=== PATIENT | female | born 1955 | race Caucasian/White ===

== ENCOUNTER 2018-06-20 16:10 | Emergency (ER) | payer MEDICARE, OTHER ==
[~2018-06-20] VITALS: Ht 175.3 cm; Wt 90.7 kg
[~2018-06-20 16:10] MED LIST: ACETAMINOPHEN-1 EAC1 PO; AUGMENTIN 875-1 EACH PO; BETIMOL5 M1 OPTH; COZAAR25 MG PO; DICLOFENAC SOD2.5 ML OPTH; FOLIC ACID1 MG PO; HYDROCHLOROTHIA50 MG PO; LATANOPROST2.5 ML OPTH; OMEGA-31000 MG PO; POTASSIUM CHLO10 MEQ PO; PREDNISONE10 MG PO; PROBIOTIC1 EAC1 PO; SAME200 MG PO; TYLENOL WITH C1 EACH PO; VITAMIN D400 UNI1 PO; ZOFRAN ODT4 MG SL
[2018-06-20] MEDS ORDERED: KETOROLAC TROME10 MG PO (17:03)
== END 2018-06-20 17:16 | disposition home or self-care (01) ==
LOC: ED 16:10
DX: S93.402A Sprain of unspecified ligament of left ankle, initial encounter (principal); I10 Essential (primary) hypertension; Z90.710 Acquired absence of both cervix and uterus; Z88.1 Allergy status to other antibiotic agents; Z88.0 Allergy status to penicillin; Z79.899 Other long term (current) drug therapy; W19.XXXA Unspecified fall, initial encounter
CPT/HCPCS: 73610; 99283

== ENCOUNTER 2021-03-10 12:26 | Emergency (ER) | payer MEDICARE, OTHER ==
[~2021-03-10] VITALS: Ht 175.3 cm; Wt 90.7 kg
[~2021-03-10 12:26] MED LIST changes: +KETOROLAC TROME10 MG PO
[2021-03-10] MEDS ORDERED: FLUTICASONE PRO16 GM NAS (12:35)
[2021-03-10] MEDS ORDERED: ATIVAN1 MG PO (15:01)
--- NOTE | 2021-03-10 15:13 | EKG ---
[facility] [address] [facility] [place] [address] Signed Sinus rhythm with occasional premature ventricular complexes Otherwise normal ECG When compared with ECG of 20-OCT-2016 10:17, premature ventricular complexes are now present Confirmed by AQUILES WILSON DO ([id number]) on 03/10/2021 3:13:47 PM Electronically Signed By: AQUILES WILSON DO 03/10/21 1513 PATIENT NAME: ANGEL CHRISTIANSON Electrocardiogram DATE OF : 51 PHYSICIAN: AQUILES WILSON DO REPORT #: [id number] REPORT IS CONFIDENTIAL AND NOT TO BE RELEASED WITHOUT AUTHORIZATION
== END 2021-03-10 15:16 | disposition home or self-care (01) ==
LOC: ED 12:26
DX: R07.89 Other chest pain (principal); I10 Essential (primary) hypertension; Z88.0 Allergy status to penicillin; Z88.1 Allergy status to other antibiotic agents; Z79.899 Other long term (current) drug therapy
CPT/HCPCS: 71045; 80053; 83735; 84484; 85025; 93005; 93010; 96374; 99285-25; J2060

== ENCOUNTER 2021-05-23 09:59 | Emergency (ER) | payer MEDICARE, OTHER ==
[~2021-05-23] VITALS: Ht 172.7 cm; Wt 83.9 kg
[~2021-05-23 09:59] MED LIST changes: +ATIVAN1 MG PO; +FLUTICASONE PRO16 GM NAS
== END 2021-05-23 11:14 | disposition home or self-care (01) ==
LOC: ED 09:59
DX: S83.92XA Sprain of unspecified site of left knee, initial encounter (principal); X58.XXXA Exposure to other specified factors, initial encounter; I10 Essential (primary) hypertension; Z88.1 Allergy status to other antibiotic agents; Z88.0 Allergy status to penicillin; Z79.899 Other long term (current) drug therapy
CPT/HCPCS: 73560; 99283-25

== ENCOUNTER 2022-01-31 08:58 | Emergency (ER) | payer MEDICARE, OTHER ==
[~2022-01-31] VITALS: Ht 172.7 cm; Wt 90.7 kg
--- OUTSIDE RECORDS SUMMARY | 2022-01-31 09:01 | XMS ---
PreManage Notification: ANGEL CHRISTIANSON Security Utilization Management Manager Events No recent Security Events currently on file CRITERIA MET - [facility] CARE PROVIDERS There are no care providers on record at this time. Kailey has no Care Guidelines for this patient. Daniele VISIT COUNT (12 MO.) 3 DANITA Amos TOTAL 3 NOTE: Visits indicate total known visits. ED/C VISIT TRACKING (12 MO.) 01/31/2022 08:59 [facility] Snowden [facility] TYPE: Emergency COMPLAINT: - LT LEG INJ 05/23/2021 10:01 [facility] TYPE: Emergency COMPLAINT: - L KNEE PAIN DIAGNOSES: - Sprain of unspecified site of left knee, initial encounter - Allergy status to penicillin - Allergy status to other antibiotic agents - Essential (primary) hypertension - Pain in left knee - Exposure to other specified factors, initial encounter - Other manager intermediate (current) drug therapy 03/10/2021 12:26 DANITA Snowden OR TYPE: Emergency COMPLAINT: - CHEST PAIN DIAGNOSES: - Allergy status to penicillin - Essential (primary) hypertension - Allergy status to other antibiotic agents - Other group home (current) drug therapy - Other chest pain INPATIENT VISIT TRACKING (12 MO.) No inpatient visits to display in this time frame [email or web address]
[2022-01-31] MEDS ORDERED: CLONAZEPAM0.5 MG PO (09:30)
[2022-01-31] MEDS ORDERED: HYDROCODON-ACE1 EA10 PO (10:34)
== END 2022-01-31 11:10 | disposition home or self-care (01) ==
LOC: ED 08:58
DX: S82.832A Other fracture of upper and lower end of left fibula, initial encounter for closed fracture (principal); X50.1XXA Overexertion from prolonged static or awkward postures, initial encounter; I10 Essential (primary) hypertension; Z88.1 Allergy status to other antibiotic agents; Z88.0 Allergy status to penicillin; Z79.899 Other long term (current) drug therapy
CPT/HCPCS: 73610; 99283-25

== ENCOUNTER 2022-07-09 05:45 | Day surgery (SDC) | payer MEDICARE, OTHER ==
[~2022-07-09] VITALS: Ht 172.7 cm; Wt 92.7 kg
[~2022-07-09 05:45] MED LIST changes: +CLONAZEPAM0.5 MG PO; +HYDROCODON-ACE1 EA10 PO
[2022-07-09] MEDS ORDERED: CELECOXIB200 MG PO (07:30)
[2022-07-09] MEDS ORDERED: HYDROCODON-ACE1 EA11 PO (07:30)
--- NOTE | 2022-07-09 07:43 | NUR ---
07/09/22 0743 Jade Salazar 0730- PT ARRIVES TO PACU AWAKE AND TALKING. PT REPORTS LEFT KNEE PAIN THAT SHE RATES A 6/10. GRADUATE RECRUITER AT THE BEDSIDE AND GIVES PT PAIN MEDICATION. PT DENIES NAUSEA. RESP EVEN AND UNLABORED. OXYGEN SAT HIGH 90'S TO 100% ON RA. ICE PACK APPLIED TO PT'S LEFT KNEE WITH DRESSING IN BETWEEN ICE PACK AND SKIN.
--- NOTE | 2022-07-09 08:16 | NUR ---
PT IS BACK TO FROM PACU. SHE IS AWAKE AND ORIENTED. SHE REPORTS PAIN 8/10, BUT DOES NOT WANT NARCOTICS. SIGNIFICANT OTHER IS AT THE BEDSIDE. CALL LIGHT WITHIN REACH. TOLERATIN SIPS OF WATER. NO ADDITIONAL NEEDS OR CONCERNS AT THIS TIME.
--- NOTE | 2022-07-09 09:22 | NUR ---
NICHO 0910: PT IS DOING WELL, STATES HER PAIN HAS COME DOWN FROM AN 8 TO A 7. SHE IS ABLE TO GET UP OOB AND AMBULATE WITH STAND BY ASSIST TO THE BATHROOM, WHERE SHE VOIDS 200MLS OF DARK YELLO URINE. SHE REQUESTS A PAIN PILL AT THIS TIME. SHE IS TOLERATING BOTH WATER AND JELLO. PARTNER STILL AT BEDSIDE. CALL LIGHT REMAINS WITHIN REACH.
--- NOTE | 2022-07-09 09:38 | NUR ---
PT TAKEN TO OR FOR SURGERY, FAMILY REMAINING IN RM WAITING. SEEMS INFORMED, ALL QUESTIONS ASKED ANSWERED. GAVE BLESSING AND WILL FOLLOW NEEDED
--- NOTE | 2022-07-09 09:46 | NUR ---
LE 0925: PT HAS MET ALL DC CRITERIA, SHE INDICATES THAT SHE WOULD LIKE TO GO HOME AT THIS TIME. SHE IS EDUCATED ON HOW TO BEST DRESS HERSELF AND TO OPEN HER CURTAIN WHEN READY. LE 0932: PT AND PARTNER ARE GIVEN WRITTEN AND VERBAL DC INSTRUCTIONS. QUESTIONS ARE ASKED AND ANSWERED. PT IS TAKEN TO PERSONAL VEHICLE VIA WC, WHERE SHE IS ABLE TO TRANSFER HERSELF WITHOUT ISSUES.
--- NOTE | 2022-07-09 11:03 | OR ---
[facility] [address] [place], [place] [address] Signed DATE OF OPERATION: 07/09/2022 SURGEON: Brie Canchola MD PREOPERATIVE DIAGNOSIS: Lateral meniscus tear, left knee. POSTOPERATIVE DIAGNOSIS: Lateral meniscus tear, left knee. PROCEDURE PERFORMED: Left knee arthroscopy with partial lateral meniscectomy. MAKEUP EDITOR: None. ANESTHESIA: General. BLOOD LOSS: Minimal. BRIEF HISTORY: Gemini is a 67-year-old female with well-preserved joint space, but significant pain and locking. Her MRI did show lateral meniscus tear fairly good-sized. Risks and benefits of operative treatment were discussed with her and she elected to proceed. Once consent was obtained, she was taken to the operating room. After adequate anesthesia, she was placed on the operating room table. All downside pressure points were well padded. The right leg was flexed, abducted and externally rotated on a well-padded leg floyd. The left was placed in a well-padded proximal thigh leg floyd. The leg was then prepped and draped in a standard sterile fashion. Portal sites were injected using 0.25% Marcaine with epinephrine. Standard inferolateral and superolateral portals were made and the scope was introduced in the knee. ARTHROSCOPIC FINDINGS: The patella was noted to track well. There was mild chondromalacia. Medial and lateral gutters were clear. The ACL and PCL were intact. Medial compartment was intact with no significant chondromalacia. The lateral compartment showed grade 2 chondromalacia throughout the lateral femoral condyle and grade 1 to 2 changes on the tibial side. There was a complex tear extending from the posterior horn to the midlateral body. This Electronically Signed By: BRIE CANCHOLA MD 07/09/22 1103 PATIENT NAME: GEMINI CHRISTIANSON OPERATIVE REPORT DATE OF : 51 REPORT #: [id number] PHYSICIAN: BRIE CANCHOLA MD PCP: RAN ENRIQUEZ REPORT IS CONFIDENTIAL AND NOT TO BE RELEASED WITHOUT AUTHORIZATION [facility] [address] [place], [place] [address] Signed had both radial, horizontal and degenerative components. DESCRIPTION OF OPERATION: Standard inferomedial portal was established after localization using a spinal needle. The straight and curved biters were then used to trim the meniscus tear back to a stable rim. The meniscus was then smoothed and feathered out using the shaver. Chondral flaps on the femur were then shaved as well. All debris was evacuated. The scope was then withdrawn. Portals were closed with 3-0 nylon and the knee was injected with 60 mg of Toradol. Wounds were dressed with Adaptic, ABD and Manoj wrap. She tolerated the procedure well. All sponge, needle, and instrument counts were correct. Brie Canchola MD BA/MODL /[id number] Copies: ~ Electronically Signed By: BRIE CANCHOLA MD 07/09/22 1103 PATIENT NAME: GEMINI CHRISTIANSON OPERATIVE REPORT DATE OF : 51 REPORT #: [id number] PHYSICIAN: BRIE CANCHOLA MD PCP: RAN ENRIQUEZ REPORT IS CONFIDENTIAL AND NOT TO BE RELEASED WITHOUT AUTHORIZATION
== END 2022-07-09 09:35 | disposition home or self-care (01) ==
LOC: DS 05:45
PROVIDERS: ATTEND Specialist
PROC: 0SBD4ZZ Excision of Left Knee Joint, Percutaneous Endoscopic Approach (ICD-10-PCS; principal; 2022-07-09 07:00)
DX: S83.282A Other tear of lateral meniscus, current injury, left knee, initial encounter (principal); Z88.1 Allergy status to other antibiotic agents; Z88.0 Allergy status to penicillin; I10 Essential (primary) hypertension; F41.9 Anxiety disorder, unspecified; F32.A Depression, unspecified
CPT/HCPCS: A9270; J0131; J0690; J1100; J1885; J2001; J2405; J2704; J3010; J7121

== ENCOUNTER 2022-09-17 07:55 | Day surgery (SDC) | payer MEDICARE, OTHER ==
[2022-09-01 09:28] VITALS: BP 129/70
[~2022-09-17] VITALS: Ht 172.7 cm; Wt 93.2 kg
[~2022-09-17 07:55] MED LIST changes: +CELECOXIB200 MG PO; +HYDROCODON-ACE1 EA11 PO
[2022-09-17 08:14] VITALS: BP 137/58
[2022-09-17] MEDS ORDERED: CO Q-1010 MG PO (08:19)
[2022-09-17 11:37] VITALS: BP 159/70
--- NOTE | 2022-09-17 14:02 | OR ---
[facility] [address] [place], [place] [address] Signed DATE OF OPERATION: 09/17/2022 SURGEON: Cheri Baeza MD PREOPERATIVE DIAGNOSES: 1. Screening. 2. Internal anal skin tags. 3. Hyperplastic colonic polyps in 2012 at age 56. POSTOPERATIVE DIAGNOSES: 1. 4 mm polyp, mid colon. 2. 5 mm polyp at 8 cm in proximal left colon. 3. 7 mm sessile polyp at hepatic flexure. 4. 3 mm polyp at 7 cm in rectum. 5. Minimal internal hemorrhoids with associated skin tags. PROCEDURE: Colonoscopy with hot biopsy. ESTIMATED BLOOD LOSS: None. INDICATIONS: Gemini is a 67-year-old female, asked to see me for followup colonoscopy. I helped her for screening colonoscopy in 2012 at the age 56. She had three small hyperplastic polyps removed. She had internal anal skin tags. She is also very sensitive to anesthetics and had quite a bit of postoperative gas pain. This is despite the fact that she had monitored anesthesia care. We had asked her to follow up in 10 years. She currently has no lower GI complaints. There is no family history of colon cancer or polyps. In the office I had given her a pamphlet on colonoscopy and we reviewed the nature of the test. There is risk including, but not limited to gas bloating, crampy abdominal pain, bleeding, perforation requiring surgery, and missed diagnosis. We also reviewed the written instructions for a bowel prep line by line. In addition, we reviewed her hemochromatosis as well as anxiety and her need for clonazepam and lorazepam on a regular basis. She also owns a local restaurant. She has a couple of drinks every day. In addition, we know she is very sensitive to anesthetics as well as postoperative gas pain. Consequently, we asked for monitored anesthesia care once again. That proved to be a salazar decision. When she woke up from the procedure, she was already complaining about the gas pain. She had expressed understanding and wished to proceed. Electronically Signed By: CHERI BAEZA MD 09/17/22 1402 PATIENT NAME: GEMINI CHRISTIANSON OPERATIVE REPORT DATE OF : 51 REPORT #: [id number] PHYSICIAN: CHERI BAEZA MD PCP: VIRI ENRIQUEZ REPORT IS CONFIDENTIAL AND NOT TO BE RELEASED WITHOUT AUTHORIZATION [facility] [address] [place], [place] [address] Signed PROCEDURE IN DETAIL: Gemini was taken in the endoscopy suite and placed in the left lateral decubitus position. She was given monitored anesthesia care with propofol per our nurse packager hand. A digital rectal exam was performed and this was unremarkable. She had good sphincter tone. No external hemorrhoids of any size. There were no masses. The adult colonoscope was introduced, advanced all the way around into the cecum under direct visualization of camera without difficulty. It took some extra propofol and abdominal compression and rotating her into the supine position in order to get the camera directly into the cecum. Her prep was good. A little bit of liquid stool had to be suctioned out, but otherwise quite satisfactory. We could easily see the appendiceal orifice and ileocecal valve. The scope was then slowly withdrawn. We used a hot biopsy forceps to remove the above-mentioned polyps without difficulty. We did not see any diverticula. Once in the rectum, the scope was retroflexed and she has very minimal internal hemorrhoid columns with associated skin tags. After this, the gas was suctioned out. The colonoscope removed. Overall, Gemini tolerated the procedure well. RECOMMENDATIONS: I will see Gemini back in my office in 7 to 14 days to review her results. Cheri Baeza MD ALB/MODL /[id number] cc: MD Viri Carlson PA Copies: CHERI BAEZA MD, LINDA PA ~ Electronically Signed By: CHERI BAEZA MD 09/17/22 1402 PATIENT NAME: GEMINI CHRISTIANSON OPERATIVE REPORT DATE OF : 51 REPORT #: [id number] PHYSICIAN: CHERI BAEZA MD PCP: VIRI ENRIQUEZ REPORT IS CONFIDENTIAL AND NOT TO BE RELEASED WITHOUT AUTHORIZATION
--- NOTE | 2022-09-22 06:03 | PATH ---
[facility] [address] [place], [place] [address] Signed SPECIMEN(S): A DESCENDING/LEFT COLON POLYP SPECIMEN(S): B PROX DESCENDING/LT COLON POLYP AT 80 CM SPECIMEN(S): C HEPATIC FLEXURE POLYP SPECIMEN(S): D COLON POLYP AT 70 CM SPECIMEN SOURCE: A. DESCENDING/LEFT COLON POLYP B. PROX DESCENDING/LT COLON POLYP AT 80 CM C. HEPATIC FLEXURE POLYP D. COLON POLYP AT 70 CM CLINICAL HISTORY: Screening, history of hyperplastic polyps. Post: Internal hemorrhoids, polyps x 4. FINAL PATHOLOGIC DIAGNOSIS: A. Colon, descending/left, polypectomy: - Hyperplastic polyp. - There is no evidence of dysplasia or malignancy. B. Colon, proximal descending/left, 80 cm, polypectomy: - Tubular adenoma. - There is no evidence of high-grade dysplasia or malignancy. C. Colon, hepatic flexure, polypectomy: - Hyperplastic polyps (two fragments). - There is no evidence of dysplasia or malignancy. D. Colon, 70 cm, polypectomy: - Hyperplastic polyp. - There is no evidence of dysplasia or malignancy. TWK:[id number] MICROSCOPIC EXAMINATION: Histologic sections of all submitted blocks are examined by light microscopy. These findings, together with the gross examination, support the pathologic diagnosis. GROSS DESCRIPTION: A. The specimen, labeled and designated "Hanks, descending colon polyp," is received in formalin and consists of one edmond soft tissue fragment, 0.2 cm. Entirely submitted in (A1). B. The specimen, labeled and designated "Hanks, proximal descending colon polyp at 80 cm," is received in formalin and consists of one edmond soft tissue PATIENT NAME: ANGEL CHRISTIANSON PATHOLOGY DATE OF : 51 REPORT #: [id number] PHYSICIAN: SILVANO BERMEO PCP: RAN ENRIQEUZ REPORT IS CONFIDENTIAL AND NOT TO BE RELEASED WITHOUT AUTHORIZATION [facility] [address] [place], [place] [address] Signed fragment, 0.2 cm. Entirely submitted in (B1). C. The specimen, labeled and designated "Mahi, hepatic flexure polyp," is received in formalin and consists of two edmond soft tissue fragments, ranging from 0.1-0.2 cm. Entirely submitted in (C1). D. The specimen, labeled and designated "Mahi, colon polyp at 70 cm," is received in formalin and consists of one edmond soft tissue fragment, 0.1 cm. Entirely submitted in (D1). JS (under the direct supervision of a pathologist) The Gross Description was prepared using a voice recognition system. The report was reviewed for accuracy; however, sound-alike word errors, addition and/or deletions may occur. If there is any question about this report, please contact Client Services. PERFORMING LABORATORY: The technical component was performed by [employer], [address] [place] [id number] (CLIA# [id number]). The professional interpretation was performed by [facility], [facility], [address] [place] [address] (CLIA#: [id number]). Diagnostician: Mendez Peng MD Pathologist Electronically Signed 09/21/2022 Copies: ~ PATIENT NAME: ANGEL CHRISTIANSON PATHOLOGY DATE OF : 51 REPORT #: [id number] PHYSICIAN: SILVANO BERMEO PCP: RAN ENRIQUEZ REPORT IS CONFIDENTIAL AND NOT TO BE RELEASED WITHOUT AUTHORIZATION
== END 2022-09-17 11:45 | disposition home or self-care (01) ==
LOC: OPS 07:55 → DS 07:55 → OPS 09:25 → DS 09:25 → OPS 11:45
PROVIDERS: ATTEND Colon & Rectal Surgery
DX: Z12.11 Encounter for screening for malignant neoplasm of colon (principal); D12.4 Benign neoplasm of descending colon; K63.5 Polyp of colon; K64.4 Residual hemorrhoidal skin tags; K64.8 Other hemorrhoids; Z86.010 Personal history of colon polyps; F41.9 Anxiety disorder, unspecified; E83.119 Hemochromatosis, unspecified; I10 Essential (primary) hypertension; M54.9 Dorsalgia, unspecified; Z88.0 Allergy status to penicillin; Z88.1 Allergy status to other antibiotic agents; Z79.899 Other long term (current) drug therapy
CPT/HCPCS: 00811; 88305; J2001; J2704; J7121

== ENCOUNTER 2025-05-15 11:09 | Emergency (ER) | payer MEDICARE, OTHER ==
[~2025-05-15] VITALS: Ht 172.7 cm; Wt 87.9 kg
[~2025-05-15 11:09] MED LIST changes: +CO Q-1010 MG PO
[2025-05-15 12:38] VITALS: BP 142/61
== END 2025-05-15 12:37 | disposition home or self-care (01) ==
LOC: ED 11:09
DX: S43.401A Unspecified sprain of right shoulder joint, initial encounter (principal); I10 Essential (primary) hypertension; X50.0XXA Overexertion from strenuous movement or load, initial encounter; Z79.52 Long term (current) use of systemic steroids; Z79.899 Other long term (current) drug therapy; Z88.1 Allergy status to other antibiotic agents; Z88.0 Allergy status to penicillin
CPT/HCPCS: 73030; 99283